=== PATIENT | female | born 1990 | race Hispanic/Latino ===

== ENCOUNTER 2020-03-18 17:57 | Emergency (ER) | payer SELFPAY ==
[~2020-03-18] VITALS: Ht 147.3 cm; Wt 73.0 kg
[~2020-03-18 17:57] MED LIST: IBUPROFEN600 MG PO; IRON325 M1 PO
[2020-03-18] MEDS ORDERED: KEFLEX500 M1 PO (18:48)
[2020-03-18] MEDS ORDERED: BACTROBAN TOP (18:48)
[2020-03-18 18:56] VITALS: BP 139/69
== END 2020-03-18 18:56 | disposition home or self-care (01) | DRG 603 ==
LOC: ED 17:57
DX: L03.115 Cellulitis of right lower limb (principal); L02.415 Cutaneous abscess of right lower limb

== ENCOUNTER 2020-08-15 13:24 | Emergency (ER) | payer SELFPAY ==
[~2020-08-15] VITALS: Ht 149.9 cm; Wt 72.6 kg
[~2020-08-15 13:24] MED LIST changes: +BACTROBAN TOP; +KEFLEX500 M1 PO
[2020-08-15 13:49] LABS: IMMATURE GRANULOCYTES 0.2 % (0.0-5.0); MEAN CELL VOLUME 85.1 fL CALC (80.0-100.0); MEAN CORPUSCULAR HGB 28.2 pG CALC (26.0-32.0); MEAN CORPUSCULAR HGB CONC 33.2 g/dL CAL (32.0-36.0); NEUT# 7.15 thou/uL (2.00-7.15); RED BLOOD COUNT 4.71 mill/uL (4.20-5.60); RED CELL DISTRI WIDTH 12.4 % (11.5-15.5)
[2020-08-15 14:08] LABS: HEMATOCRIT 40.1 % (37.0-47.0); HEMOGLOBIN 13.3 g/dl (12.0-16.0)
[2020-08-15 14:22] LABS: ANION GAP 14 (6-22 (CALC)); BUN 11 mg/dL (7-17); BUN/CREATININE RATIO 19 (12-20 (CALC)); CARBON DIOXIDE 26 mmol/l (22-30); CHLORIDE 101 mmol/l (95-108); CREATININE 0.6 mg/dL (0.5-1.0); GFR > 60 ML/MIN (>=60 (CALC)); GFR FOR AFR.AMER. > 60 ML/MIN (>=60 (CALC)); POTASSIUM 3.4 mmol/l (3.5-5.1); SODIUM 137 mmol/l (137-146)
[2020-08-15] MEDS ORDERED: PROTONIX40 M2 PO (14:50)
[2020-08-15 15:28] VITALS: BP 137/84
== END 2020-08-15 15:39 | disposition home or self-care (01) | DRG 313 ==
LOC: ED 13:24
PROVIDERS: Family Medicine
DX: R07.89 Other chest pain (principal); K21.9 Gastro-esophageal reflux disease without esophagitis

== ENCOUNTER 2021-05-28 12:20 | Emergency (ER) | payer SELFPAY ==
[~2021-05-28 12:20] MED LIST changes: +PROTONIX40 M2 PO
== END 2021-05-28 13:18 | disposition left against medical advice (07) | DRG 951 ==
LOC: ED 12:20 → LWOBS 13:18
DX: Z53.21 Procedure and treatment not carried out due to patient leaving prior to being seen by health care provider (principal)